=== PATIENT | female | born 2000 | race Caucasian/White ===

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

== ENCOUNTER 2022-04-10 13:07 | Emergency (ER) | payer BC ==
[2022-04-10 13:35] VITALS: BMI 27.1
[2022-04-10] MEDS ORDERED: SODIUM CHLORIDE 0.9% 500 ML INFUS.BAG IV ONE (14:20)
[2022-04-10 14:44] LABS: BASO % 0.2 % (0-2.0); EOS % 0.2 % (0-4.5); HEMATOCRIT 36.8 % (32.4-45.2); HEMOGLOBIN 12.2 GM/dL (10.7-15.3); LYMPH % 15.7 % (8-40); MCH 27.4 pg (25.7-33.7); MCHC 33.2 g/dl (32.0-36.0); MEAN CELL VOLUME 82.6 fl (80-96); MEAN PLT VOLUME 8.7 fl (7.5-11.1); MONO % 12.9 % (3.8-10.2); PLATELET COUNT 277 10^3/uL (134-434); RBC 4.45 M/mm3 (3.60-5.2); WHITE BLOOD COUNT 7.3 K/mm3 (4.0-10.0)
[2022-04-10 14:47] LABS: EPI CELLS 25 /uL (0-25.1); HYALINE CASTS 0 /uL (0-3.1); PH,URINE 5.5 (5.0-8.0); URINE APPEARANCE CLOUDY; URINE BACTERIA 24 /uL (0-1359); URINE BILIRUBIN NEGATIVE (NEGATIVE); URINE COLOR ORANGE; URINE GLUCOSE (UA) NEGATIVE (NEGATIVE); URINE KETONE 1+ (NEGATIVE); URINE LEUK ESTERASE 1+ (NEGATIVE); URINE NITRITE NEGATIVE (NEGATIVE); URINE PROTEIN 2+ (NEGATIVE); URINE RBC 9327 /uL (0-23.9); URINE WBC 90 /uL (0-25.8)
[2022-04-10 14:51] LABS: INR 1.41 (0.83-1.09); PROTHROMBIN TIME (PATIENT) 16.3 SEC (9.7-13.0)
[2022-04-10 14:54] LABS: ACTIVATED PTT 30.1 SECONDS (25.2-36.5)
[2022-04-10 14:56] LABS: CALCIUM 9.3 mg/dL (8.5-10.1)
[2022-04-10 14:57] LABS: ALBUMIN 4.1 g/dl (3.4-5.0)
[2022-04-10 15:00] LABS: CREATININE 1.2 mg/dL (0.55-1.3)
[2022-04-10 15:01] LABS: BILIRUBIN,TOTAL 0.9 mg/dL (0.2-1); TOT PROT 8.2 g/dl (6.4-8.2)
[2022-04-10 16:26] VITALS: BP 118/68; PULSE 94; RESP 16; TEMP 98.4
[2022-04-10] MEDS ORDERED: IBUPROFEN 600 MG TABLET (FP) PO ONE (16:32)
== END 2022-04-10 16:39 | disposition home or self-care (01) ==
LOC: JER 13:07
DX: N93.9 Abnormal uterine and vaginal bleeding, unspecified (principal)
CPT/HCPCS: 36415; 76830-TC; 80053; 81003; 84703; 85025; 85610; 85730; 86850; 86900; 86901; 99283-25

== ENCOUNTER 2024-03-13 13:43 | Observation (INO) | payer BC ==
[2024-03-13] MEDS ORDERED: ACETAMINOPHEN 500 MG TABLET (FP) ONE (15:59)
[2024-03-13] MEDS ORDERED: CYCLOBENZAPRINE HCL 10 MG TABLET (FP) ONE (15:59)
[2024-03-13 16:00] LABS: BASO % 0.2 % (0-2.0); EOS % 0.3 % (0-4.5); HEMATOCRIT 23.5 % (32.4-45.2); HEMOGLOBIN 7.6 GM/dL (10.7-15.3); LYMPH % 16.2 % (8-40); MCHC 32.3 g/dl (32.0-36.0); MEAN CELL VOLUME 74.4 fl (80-96); MEAN PLT VOLUME 7.1 fl (7.5-11.1); MONO % 11.1 % (3.8-10.2); NEUT % 72.2 % (42.8-82.8); PLATELET COUNT 313 10^3/uL (134-434); RBC 3.16 M/mm3 (3.60-5.2); RDW 17.3 % (11.6-15.6); WHITE BLOOD COUNT 10.3 K/mm3 (4.0-10.0)
[2024-03-13] MEDS: CYCLOBENZAPRINE HCL 10 MG TABLET (FP) PO ONE (16:13)
[2024-03-13] MEDS: ACETAMINOPHEN 500 MG TABLET (FP) PO ONE (16:13)
[2024-03-13 16:30] LABS: POTASSIUM 4.3 mmol/L (3.5-5.1)
[2024-03-13 16:32] LABS: ALBUMIN 3.9 g/dl (3.4-5.0); BLOOD UREA NITROGEN 11.6 mg/dL (7-18); CALCIUM 8.9 mg/dL (8.5-10.1)
[2024-03-13 16:35] LABS: CREATININE 0.7 mg/dL (0.55-1.3)
[2024-03-13 16:37] LABS: BILIRUBIN,TOTAL 0.5 mg/dL (0.2-1); TOT PROT 7.4 g/dl (6.4-8.2)
[2024-03-13 17:03] LABS: INR 1.25 (0.83-1.09); PROTHROMBIN TIME (PATIENT) 14.3 SEC (9.7-13.0)
[2024-03-13] MEDS: medroxyPROGESTERone ACET 150 MG/1 ML VIAL IM ONE (22:09)
[2024-03-13 22:34] LABS: HEMATOCRIT 28.3 % (32.4-45.2); MCH 23.8 pg (25.7-33.7); MCHC 31.9 g/dl (32.0-36.0); MEAN CELL VOLUME 74.7 fl (80-96); MEAN PLT VOLUME 7.9 fl (7.5-11.1); PLATELET COUNT 306 10^3/uL (134-434); RBC 3.79 M/mm3 (3.60-5.2); RDW 17.5 % (11.6-15.6); WHITE BLOOD COUNT 8.9 K/mm3 (4.0-10.0)
[2024-03-13 22:41] LABS: EPI CELLS 3 /uL (0-25.1); HYALINE CASTS 0 /uL (0-3.1); PH,URINE 7.5 (5.0-8.0); URINE APPEARANCE CLEAR; URINE BACTERIA 15 /uL (0-1359); URINE BILIRUBIN NEGATIVE (NEGATIVE); URINE COLOR YELLOW; URINE GLUCOSE (UA) NEGATIVE (NEGATIVE); URINE KETONE NEGATIVE (NEGATIVE); URINE LEUK ESTERASE NEGATIVE (NEGATIVE); URINE NITRITE NEGATIVE (NEGATIVE); URINE PROTEIN NEGATIVE (NEGATIVE); URINE RBC 575 /uL (0-23.9); URINE UROBILINOGEN 0.2 mg/dL (0.2-1.0); URINE WBC 5 /uL (0-25.8)
[2024-03-14 01:11] VITALS: BMI 27.3
[2024-03-14 07:53] LABS: BASO % 0.3 % (0-2.0); EOS % 1.4 % (0-4.5); HEMATOCRIT 27.9 % (32.4-45.2); HEMOGLOBIN 9.1 GM/dL (10.7-15.3); LYMPH % 28.7 % (8-40); MCH 24.2 pg (25.7-33.7); MCHC 32.7 g/dl (32.0-36.0); MEAN CELL VOLUME 74.1 fl (80-96); MEAN PLT VOLUME 8.1 fl (7.5-11.1); MONO % 11.8 % (3.8-10.2); NEUT % 57.8 % (42.8-82.8); PLATELET COUNT 299 10^3/uL (134-434); RBC 3.77 M/mm3 (3.60-5.2); RDW 17.5 % (11.6-15.6); WHITE BLOOD COUNT 7.3 K/mm3 (4.0-10.0)
[2024-03-14 08:08] VITALS: BP 131/84; PULSE 97; RESP 16; TEMP 98.2
[2024-03-14 08:10] LABS: POTASSIUM 4.2 mmol/L (3.5-5.1)
[2024-03-14 08:16] LABS: ALBUMIN 3.7 g/dl (3.4-5.0); CALCIUM 8.9 mg/dL (8.5-10.1)
[2024-03-14 08:18] LABS: MAGNESIUM 2.1 mg/dL (1.8-2.4)
[2024-03-14 08:20] LABS: CREATININE 0.8 mg/dL (0.55-1.3); PHOSPHOROUS 3.8 mg/dL (2.5-4.9)
[2024-03-14 08:21] LABS: BILIRUBIN,TOTAL 0.8 mg/dL (0.2-1)
[2024-03-15 13:09] LABS: FOLLICLE STIMULATING HORMONE 9.4 mIU/mL (.); LUTEINIZING HORMONE 43.3 mIU/mL (.)
== END 2024-03-14 13:29 | disposition home or self-care (01) ==
LOC: JER 13:43 → JERBED 17:22 → J4W 23:39
PROVIDERS: ADMIT Internal Medicine; ATTEND Student in an Organized Health Care Education/Training Program
PROC: 30233N1 Transfusion of Nonautologous Red Blood Cells into Peripheral Vein, Percutaneous Approach (ICD-10-PCS; principal; 2024-03-13)
PROC: 3E023GC Introduction of Other Therapeutic Substance into Muscle, Percutaneous Approach (ICD-10-PCS; 2024-03-13)
DX: D64.9 Anemia, unspecified (principal); N93.9 Abnormal uterine and vaginal bleeding, unspecified; R07.9 Chest pain, unspecified; Z91.013 Allergy to seafood
CPT/HCPCS: 36415; 36430; 71045-TC-FY; 76830-TC; 80053; 81003; 83001; 83002; 83735; 84100; 84146; 84484; 84703; 85025; 85027; 85610; 86850; 86900; 86901; 86922; 87491; 87591; 87661; 93005; 93010; 93306-TC; 99285-25; G0378; P9038; P9058